=== PATIENT | female | born 1955 | race Caucasian/White ===

== ENCOUNTER 2016-11-12 11:03 | Day surgery (SDC) | payer BC ==
[2016-11-11 08:57] VITALS: BMI 27.0
[~2016-11-12 11:03] MED LIST: LACTATED RINGERS 1,000 ML IV SCH
[2016-11-12 12:20] VITALS: RESP 16; TEMP 97.7
[2016-11-12] MEDS ORDERED: LIDOCAINE 1% 20 ML VIAL (10MG/ML) FOR IV START SQ ONE (12:26)
[2016-11-12] MEDS ORDERED: PROPOFOL 10 MG/ML 20 ML VIAL IV ONE (12:32)
--- NOTE | 2016-11-12 12:59 | P.PCN ---
Date of Procedure: 11/12/16 Procedure(s) Performed: Brief history: Patient is a pleasant 61-year-old white female, scheduled for an elective upper endoscopy as well as colonoscopy as a part of evaluation of severe epigastric pain, abdominal bloating and diarrhea for the last 1 year duration. Symptoms have been progressively getting worse in the last several months. She denies any recent weight loss. She has bowel movements anywhere from 6-8 a day which are loose to watery in consistency. She is presently on the dexilant 60 mg daily as well as Carafate and still has epigastric pain on a daily basis. Procedure performed: Esophagogastroduodenoscopy with biopsy Colonoscopy with biopsy Preoperative diagnosis: Epigastric pain/GERD Chronic diarrhea Anesthesia: MAC Procedure: After informed consent was obtained from the patient was brought into the endoscopy unit and IV conscious sedation was administered by anesthesia under continuous monitoring. Initially upper endoscopy was done. The Olympus GF 160 video endoscope was inserted inserted into the mouth and esophagus intubated without any difficulty and was gradually advanced into the stomach and duodenum and carefully examined. The bulb and second part of the duodenum appeared normal. The scope was then withdrawn into the stomach adequately insufflated with air and upon careful examination the antrum and body, cardia and fundus appeared normal. The scope was then withdrawn into the esophagus. The GE junction was located at 40 cm to the incisors. It appeared regular with no erythema erosions or ulcerations. Rest of the esophagus appeared normal. Patient tolerated the procedure well. At this time the patient continued to remain sedation. Initial digital rectal examination was normal. Olympus CF 160 video colonoscope was then inserted into the rectum and gradually advanced to the cecum without any difficulty. Careful examination was performed as the scope was gradually being withdrawn. The prep was fair. The cecum, ascending colon, transverse colon, descending colon, sigmoid colon and rectum appeared normal. Random biopsies were done from ascending and descending colon to rule out microscopic/collagenous colitis. Retroflexion was performed in the rectum and no lesions were noted. Patient tolerated the procedure well. Impression: 1. Upper endoscopy revealed mild antral gastritis and small hiatal hernia. 2. Colonoscopy was essentially within normal limits with no evidence of colitis or colorectal neoplasia Recommendations: Findings of this examination were discussed with the patient as well as her family. She was advised to follow with the biopsy results. She will continue with the dexilant 60 mg po qd as well as Carafate and the major millimeters the biopsy results. She'll be seen in office in 1 week.
[2016-11-12] MEDS ORDERED: MAG HYDROX/AL HYDROX/SIMETH 30 ML CUP PO ONE (13:11)
[2016-11-12] MEDS ORDERED: FAMOTIDINE 20 MG/2 ML VIAL IVP ONE (13:20)
[2016-11-12 14:03] VITALS: BP 114/47; PULSE 74
== END 2016-11-12 14:12 | disposition home or self-care (01) ==
LOC: ORWHC2ENDO 11:03
PROVIDERS: ATTEND Internal Medicine Gastroenterology
DX: K21.9 Gastro-esophageal reflux disease without esophagitis (principal); K29.50 Unspecified chronic gastritis without bleeding; K44.9 Diaphragmatic hernia without obstruction or gangrene; R19.7 Diarrhea, unspecified; I10 Essential (primary) hypertension; E78.5 Hyperlipidemia, unspecified; J44.9 Chronic obstructive pulmonary disease, unspecified; J45.909 Unspecified asthma, uncomplicated; E07.9 Disorder of thyroid, unspecified; F39 Unspecified mood [affective] disorder; Z88.2 Allergy status to sulfonamides; Z79.51 Long term (current) use of inhaled steroids; Z79.899 Other long term (current) drug therapy; Z87.891 Personal history of nicotine dependence
CPT/HCPCS: 88305; 88342; 45380; 43239; J2704; 99153

== ENCOUNTER 2016-11-29 20:39 | Observation (INO) | payer BC ==
[2016-11-29] MEDS ORDERED: SODIUM CHLORIDE 0.9% 1,000 ML IV STA ×2 (21:14)
[2016-11-29] MEDS ORDERED: METOCLOPRAMIDE 5 MG/ML 2 ML VIAL IVP STA (21:14)
--- NOTE | 2016-11-29 21:20 | ED ---
General Adult HPI - General Source: patient, family, RN notes reviewed Mode of arrival: ambulatory Limitations: no limitations <Napoleon Zhu - Last Filed: 11/30/16 01:00> <Fatimah Valadez - Last Filed: 11/30/16 03:44> - General Chief complaint: Nausea/Vomiting/Diarrhea Stated complaint: NVD x2 days Time Seen by Provider: 11/29/16 20:58 - History of Present Illness Initial comments: Chief complaint and history of present illness 61-year-old female here with her . The patient reports that she's not been feeling well for several days. Nausea vomiting and diarrhea. Feels dehydrated. Reports she had a fever at home currently no fever. (Napoleon Zhu) - Related Data Home Medications Medication Instructions Recorded Confirmed Albuterol Inhaler [Ventolin Hfa 1 - 2 puff INHALATION RT-Q6H PRN 11/11/16 Inhaler] Bimatoprost [Lumigan .01% Ophth 1 drop BOTH EYES HS 11/11/16 11/29/16 Soln] Dexlansoprazole [Dexilant] 60 mg PO HS 11/11/16 11/29/16 Levothyroxine Sodium [Synthroid] 50 mcg PO DAILY 11/11/16 11/29/16 Mometasone/Formoterol [Dulera 100 1 puff INHALATION RT-DAILY 11/11/16 11/29/16 Mcg/5 Mcg Inhaler] Rosuvastatin Calcium [Crestor] 10 mg PO HS 11/11/16 11/29/16 Vit C/E/Zn/Coppr/Lutein/Zeaxan 1 cap PO BID 11/11/16 11/29/16 [Preservision Areds 2 Softgel] Cholecalciferol [Vitamin D3] 1,000 unit PO DAILY 11/29/16 11/29/16 Dicyclomine [Bentyl] 10 mg PO QID 11/29/16 11/29/16 Fish Oil/Dha/Epa [Fish Oil 1,200 1 cap PO DAILY 11/29/16 11/29/16 mg Fish Oil] Sucralfate [Carafate] 1 gm PO QID 11/29/16 11/29/16 Allergies Allergy/AdvReac Type Severity Reaction Status Date / Time Sulfa (Sulfonamide Allergy Anaphylaxis Verified 11/29/16 21:24 Antibiotics) Review of Systems ROS Other: All systems not noted in ROS Statement are negative. <Napoleon Zhu - Last Filed: 11/30/16 01:00> ROS Other: All systems not noted in ROS Statement are negative. <Fatimah Valadez - Last Filed: 11/30/16 03:44> ROS Statement: Those systems with pertinent positive or pertinent negative responses have been documented in the HPI. Review of systems. No headache or stiff neck. No visual acuity changes. No chest pain or shortness of breath. Patient's had nausea vomiting and diarrhea with muscle aches and pains through her shoulders sides and legs. All systems are reviewed. Past medical problems significant for breast cancer 15 years ago, asthma, TIA, GERD, GI bleed, hyperlipidemia, hypertension, hypothyroidism. The patient's surgeries include , cholecystectomy, heart catheterization without stent. Partial hysterectomy, cholecystectomy with a stent which still is there over 12 years. The patient's family history significant for mother had kidney breast cancer grandmother with breast cancer sister had uterine cancer. Patient quit smoking 12 years ago denies alcohol use. (Napoleon Zhu) Past Medical History Past Medical History: Asthma, Cancer, CVA/TIA, GERD/Reflux, GI Bleed, Hyperlipidemia, Hypertension, Thyroid Disorder Additional Past Medical History / Comment(s): hx breast cancer,tia currently experiencing abdominal pain, nausea, states has hole in heart and is wearing a heart monitor for 1 month, states takes metformin for thyroid and weight management. History of Any Multi-Drug Resistant Organisms: None Reported Past Surgical History: Section, Cholecystectomy, Heart Catheterization , Hysterectomy Additional Past Surgical History / Comment(s): Choly with stent, Past Anesthesia/Blood Transfusion Reactions: No Reported Reaction Past Psychological History: No Psychological Hx Reported Smoking Status: Former smoker Past Alcohol Use History: None Reported Additional Past Alcohol Use History / Comment(s): started smoking age 16 smoked 1-2 ppd quit 2004 Past Drug Use History: None Reported - Past Family History Mother Family Medical History: Cancer, Renal Disease Additional Family Medical History / Comment(s): breast cancer Sister(s) Family Medical History: Deep Vein Thrombosis (DVT) Brother(s) Additional Family Medical History / Comment(s): "clotting disorder" <Napoleon Zhu - Last Filed: 11/30/16 01:00> General Exam Limitations: no limitations <Napoleon Zhu - Last Filed: 11/30/16 01:00> <Fatimah Valadez - Last Filed: 11/30/16 03:44> - General Exam Comments Initial Comments: General: The patient is awake and alert, complaining of feeling dehydrated muscle aches and pains nausea vomiting diarrhea for 2 days. Vital signs show temperature 98.9 pulse 79 respiratory rate 16 pulse ox 95% room air blood pressure 137/61. Elevated systolic noted. The patient is in some distress. She'll be following up with her family physician. Eye: Pupils are equal, round and reactive to light, extra-ocular movements are intact ; there is normal conjunctiva bilaterally. No signs of icterus. Ears, nose, mouth and throat: There are moist mucous membranes and no oral lesions. Neck: The neck is supple, there is no tenderness . Cardiovascular: There is a regular rate and rhythm. No murmur, rub or gallop is appreciated. Respiratory: Lungs are clear to auscultation, respirations are non-labored, breath sounds are equal. No wheezes, stridor, rales, or rhonchi. Gastrointestinal: Soft, non-distended, non-tender abdomen without masses or organomegaly noted. There is no rebound or guarding present. No CVA tenderness. Bowel sounds are unremarkable. Back: There is no tenderness to palpation in the midline. There is no obvious deformity. No rashes noted. Musculoskeletal: Generalized musculoskeletal pain. Flu-type symptoms.. Neurological: No neuro deficits. Slightly dizzy when she tries to get up and walk after having had nausea vomiting diarrhea for 2 days. Skin: Skin is warm and dry and no rashes or lesions are noted. (Napoleon Zhu) Course <Napoleon Zhu - Last Filed: 11/30/16 01:00> <Fatimah Valadez - Last Filed: 11/30/16 03:44> Vital Signs 11/29/16 11/29/16 11/30/16 20:45 23:30 03:30 Temperature 98.9 F 97.6 F Pulse Rate 79 69 54 L Respiratory 16 18 16 Rate Blood Pressure 137/61 120/59 118/57 O2 Sat by Pulse 95 97 96 Oximetry - Reevaluation(s) Reevaluation #1: 11/30/16 03:[address] was was reviewed findings were discussed with the patient, there is a questionable ALLERGIC stenosis, gastritis, colitis, pelvic lesion, biliary ductal dilatation and ovarian lesion. She still complaining about a lot of pain considering that she will be admitted under Dr. Hernandez and will consult Dr. Shreya Cash have seen her in the past and she would need MRCP for further evaluation and she be put on some pain meds along with some IV PPIs ( Fatimah Valadez) Medical Decision Making - Lab Data Result diagrams: 11/29/16 21:22 11/29/16 21:22 <Napoleon Zhu - Last Filed: 11/30/16 01:00> - Lab Data Result diagrams: 11/29/16 21:22 11/29/16 21:22 <Fatimah Valadez - Last Filed: 11/30/16 03:44> - Medical Decision Making Medical decision making; patient's white count 6.1 hemoglobin 15 hematocrit of 44. Potassium 3.4 with a BUN 14 creatinine 0.6 and GFR greater than 60. Glucose 101, amylase lipase within normal limits. Flu a and B reported to be negative. Urine shows 8 WBCs 3 RBCs but a fair number of squamous as well. X-rays of the abdomen done and reviewed by radiologist and their impression is possible mild ileus without frankly dilated bowel loops nor free air seen. This could be correlated clinically to guide further follow-up imaging as clinically indicated. As read by Dr. damon Patient is reportedly feeling better after rehydration. Patient was to be scheduled for a CAT scan of the abdomen, she recently had endoscopy and colonoscopy. Her reversal print inspector wanted her to have CAT scan of the abdomen. This be done this evening. Final disposition will be determined by Dr. Valadez (Napoleon Zhu) - Lab Data Lab Results 11/29/16 11/29/16 11/29/16 Range/Units 21:10 21:22 21:22 WBC 6.1 (3.8-10.6) k/uL RBC 5.23 (3.80-5.40) m/uL Hgb 15.4 (11.4-16.0) gm/dL Hct 44.7 (34.0-46.0) % MCV 85.4 (80.0-100.0) fL MCH 29.4 (25.0-35.0) pg MCHC 34.4 (31.0-37.0) g/dL RDW 13.2 (11.5-15.5) % Plt Count 185 (150-450) k/uL Neutrophils % 59 % Lymphocytes % 26 % Monocytes % 10 % Eosinophils % 0 % Basophils % 1 % Neutrophils # 3.6 (1.3-7.7) k/uL Lymphocytes # 1.6 (1.0-4.8) k/uL Monocytes # 0.6 (0-1.0) k/uL Eosinophils # 0.0 (0-0.7) k/uL Basophils # 0.1 (0-0.2) k/uL Sodium 139 (137-145) mmol/L Potassium 3.4 L (3.5-5.1) mmol/L Chloride 101 (98-107) mmol/L Carbon Dioxide 23 (22-30) mmol/L Anion Gap 15 mmol/L BUN 14 (7-17) mg/dL Creatinine 0.68 (0.52-1.04) mg/dL Est GFR (MDRD) Af Amer >60 (>60 ml/min/1.73 sqM) Est GFR (MDRD) Non-Af >60 (>60 ml/min/1.73 sqM) Glucose 101 H (74-99) mg/dL Calcium 9.7 (8.4-10.2) mg/dL Total Bilirubin 0.4 (0.2-1.3) mg/dL AST 29 (14-36) U/L ALT 27 (9-52) U/L Alkaline Phosphatase 84 (38-126) U/L Total Protein 7.5 (6.3-8.2) g/dL Albumin 4.4 (3.5-5.0) g/dL Amylase 81 (30-110) U/L Lipase 92 (23-300) U/L Urine Color Urine Appearance (Clear) Urine pH (5.0-8.0) Ur Specific Miller (1.001-1.035) Urine Protein (Negative) Urine Glucose (UA) (Negative) Urine Ketones (Negative) Urine Blood (Negative) Urine Nitrate (Negative) Urine Bilirubin (Negative) Urine Urobilinogen (<2.0) mg/dL Ur Leukocyte Esterase (Negative) Urine RBC (0-5) /hpf Urine WBC (0-5) /hpf Ur Squamous Epith Cells (0-4) /hpf Hyaline Casts (0-2) /lpf Urine Mucus (None) /hpf Influenza Type A RNA Not Detected (Not Detectd) Influenza Type B (PCR) Not Detected (Not Detectd) 11/29/16 Range/Units 23:06 WBC (3.8-10.6) k/uL RBC (3.80-5.40) m/uL Hgb (11.4-16.0) gm/dL Hct (34.0-46.0) % MCV (80.0-100.0) fL MCH (25.0-35.0) pg MCHC (31.0-37.0) g/dL RDW (11.5-15.5) % Plt Count (150-450) k/uL Neutrophils % % Lymphocytes % % Monocytes % % Eosinophils % % Basophils % % Neutrophils # (1.3-7.7) k/uL Lymphocytes # (1.0-4.8) k/uL Monocytes # (0-1.0) k/uL Eosinophils # (0-0.7) k/uL Basophils # (0-0.2) k/uL Sodium (137-145) mmol/L Potassium (3.5-5.1) mmol/L Chloride (98-107) mmol/L Carbon Dioxide (22-30) mmol/L Anion Gap mmol/L BUN (7-17) mg/dL Creatinine (0.52-1.04) mg/dL Est GFR (MDRD) Af Amer (>60 ml/min/1.73 sqM) Est GFR (MDRD) Non-Af (>60 ml/min/1.73 sqM) Glucose (74-99) mg/dL Calcium (8.4-10.2) mg/dL Total Bilirubin (0.2-1.3) mg/dL AST (14-36) U/L ALT (9-52) U/L Alkaline Phosphatase (38-126) U/L Total Protein (6.3-8.2) g/dL Albumin (3.5-5.0) g/dL Amylase (30-110) U/L Lipase (23-300) U/L Urine Color Yellow Urine Appearance Clear (Clear) Urine pH 6.0 (5.0-8.0) Ur Specific Miller 1.018 (1.001-1.035) Urine Protein Trace H (Negative) Urine Glucose (UA) Negative (Negative) Urine Ketones Trace H (Negative) Urine Blood Negative (Negative) Urine Nitrate Negative (Negative) Urine Bilirubin Negative (Negative) Urine Urobilinogen <2.0 (<2.0) mg/dL Ur Leukocyte Esterase Moderate H (Negative) Urine RBC 3 (0-5) /hpf Urine WBC 8 H (0-5) /hpf Ur Squamous Epith Cells 1 (0-4) /hpf Hyaline Casts 25 H (0-2) /lpf Urine Mucus Rare H (None) /hpf Influenza Type A RNA (Not Detectd) Influenza Type B (PCR) (Not Detectd) Disposition <Napoleon Zhu - Last Filed: 11/30/16 01:00> <Fatimah Valadez - Last Filed: 11/30/16 03:44> Clinical Impression: Gastritis, Colitis, Hepatic lesion, Common bile duct dilatation, Lesion of ovary Disposition: ADMITTED IP TO THIS HOSP
[2016-11-29 21:30] LABS: Basophils # (A) 0.1 k/uL (0-0.2); Basophils % (A) 1 %; CH 29.3; CHCM 34.4; Eosinophils % (A) 0 %; HCT 44.7 % (34.0-46.0); HDW 2.55; HGB 15.4 gm/dL (11.4-16.0); Luc # (Auto) 0.26; Luc % (Auto) 4; Lymphocytes # (A) 1.6 k/uL (1.0-4.8); Lymphocytes % (A) 26 %; MCH 29.4 pg (25.0-35.0); MCHC 34.4 g/dL (31.0-37.0); MCV 85.4 fL (80.0-100.0); Mean Platelet Volume 8.5; Monocytes # (A) 0.6 k/uL (0-1.0); Monocytes % (A) 10 %; Neutrophils # (A) 3.6 k/uL (1.3-7.7); Neutrophils % (A) 59 %; RBC 5.23 m/uL (3.80-5.40); RDW 13.2 % (11.5-15.5); WBC 6.1 k/uL (3.8-10.6); WBC (Perox) 5.86
[2016-11-29] MEDS ORDERED: ACETAMINOPHEN IV (For NPO) 1,000 MG in EMPTY BAG 1 BAG IVPB STA (21:41)
[2016-11-29 21:43] LABS: ALT 27 U/L (9-52); AST 29 U/L (14-36); Alkaline Phosphatase 84 U/L (38-126); Amylase 81 U/L (30-110); Anion Gap 15 mmol/L; Blood Urea Nitrogen 14 mg/dL (7-17); Calcium 9.7 mg/dL (8.4-10.2); Carbon Dioxide 23 mmol/L (22-30); Chloride 101 mmol/L (98-107); Glucose 101 mg/dL (74-99); Non-African American GFR(MDRD) >60 (>60 ml/min/1.73 sqM); Potassium 3.4 mmol/L (3.5-5.1); Sodium 139 mmol/L (137-145); Total Bilirubin 0.4 mg/dL (0.2-1.3); Total Protein 7.5 g/dL (6.3-8.2)
[2016-11-29] MEDS ORDERED: HYDROmorphone 1 MG/ML 1 ML SYRINGE IVP STA (23:14)
[2016-11-29] MEDS ORDERED: MAG HYDROX/AL HYDROX/SIMETH 30 ML, HYOSCYAMINE ELIXIR 10 ML, CIMETIDINE HCL 300 MG PO STA ×3 (23:24)
[2016-11-29 23:43] LABS: Appearance,Urine Clear (Clear); Bilirubin,Urine Negative (Negative); Glucose,Urine (UA) Negative (Negative); Ketones,Urine Trace (Negative); Leukocyte Esterase,Urine Moderate (Negative); Mucus,Urine Rare /hpf; Nitrite,Urine Negative (Negative); Particle Count 4592; Protein,Urine Trace (Negative); RBC,Urine 3 /hpf (0-5); Specific Gravity,Urine 1.018 (1.001-1.035); Squamous Epithelial Cell,Urine 1 /hpf (0-4); UA Billing (MACRO vs. MICRO) MICRO; Urobilinogen,Urine <2.0 mg/dL (<2.0); WBC,Urine 8 /hpf (0-5)
--- NOTE | 2016-11-29 23:58 | XR ---
EXAM: XR Abdomen Complete, 2 or More Views. CLINICAL HISTORY: Reason: Nausea vomiting diarrhea, abdominal pain TECHNIQUE: Frontal view of the abdomen/pelvis with upright view of the abdomen. COMPARISON: No relevant prior studies available. FINDINGS: Free air: None. Gastrointestinal tract: Scattered air-fluid levels seen within nondilated colon and borderline prominent small bowel loop in the left mid abdomen as well as within the stomach, suggesting the possibility of a mild generalized ileus. Visualized organs and vessels: Right upper quadrant clips consistent with cholecystectomy. Small bilateral pelvic calcifications are indeterminate, statistically phleboliths. Bones: Mild rightward curvature of the lumbar spine with mild degenerative changes present. No acute fracture. IMPRESSION: Possible mild ileus without frankly dilated bowel loops nor free air seen. This could be correlated clinically to guide further follow-up imaging as clinically indicated.
[2016-11-30] MEDS ORDERED: RX INFO: IV CONTRAST WAS GIVEN 1 EACH MISC MISCELLANE PRN (00:26)
[2016-11-30] MEDS ORDERED: IOHEXOL 350 MG/ML 25 ML BOTTLE (ORAL USE) PO PRN (00:26)
--- NOTE | 2016-11-30 02:44 | CT ---
EXAM: CT Abdomen and Pelvis With Intravenous Contrast. CLINICAL HISTORY: Reason: Abdominal pain TECHNIQUE: Axial computed tomography images of the abdomen and pelvis with intravenous contrast. CTDI is 14.40 mGy and DLP is 562.00 mGy-cm COMPARISON: Earlier plain films of the same evening. FINDINGS: Lower thorax: There is contrast present, where included, within the mildly dilated distal esophagus and outlining a small hiatal hernia, possibly due to dysmotility or reflux. ABDOMEN: Liver: Ovoid 2.8 x 2.2 cm low-density lesion in the posterior segment right hepatic lobe is of higher density than simple cyst and indeterminate. Gallbladder and bile ducts: Previous cholecystectomy. Mild biliary ductal dilatation with common duct measuring 12-13 mm, and tapering distally without evidence of a calcified obstructing stone within. Pancreas: Unremarkable. No ductal dilation. No mass. Spleen: Unremarkable. No splenomegaly. Adrenals: Unremarkable. No mass. Kidneys and ureters: Unremarkable. No hydronephrosis. No solid mass. PELVIS: Bladder: Unremarkable. No mass. Reproductive: 16 mm left ovarian cyst were low-density cystic lesion is present. Previous hysterectomy. Appendix: No findings to suggest acute appendicitis. ABDOMEN + PELVIS: Stomach and bowel: Contrast filled and distended stomach, without anatomic outlet obstruction although with perhaps mild pyloric wall thickening. Small amount of contrast is seen within a duodenal diverticulum adjacent to the level of the ampulla. Contrast is present within nondilated small bowel loops, not yet reaching the cecum. Allowing for opacification of its lumen and relative decompression, there does appear to be mild circumferential wall thickening of the descending and sigmoid colon to rectum suggesting a mild nonspecific colitis. Peritoneum: Unremarkable. No significant fluid collection. No free air. Lymph nodes: Unremarkable. No enlarged lymph nodes. Vasculature: Multilevel atherosclerotic changes. No aortic aneurysm. Bones: Multilevel degenerative changes. Mild anterior loss of height at T11 and T12, which appear chronic. IMPRESSION: 1. Distended stomach with mild pyloric channel thickening that may be transient, on the basis of gastritis, or much less likely, an underlying neoplastic etiology is not excluded. Formal GI evaluation could be considered. 2. Mild left-sided and distal colonic wall thickening suggesting mild nonspecific colitis. General differential includes infectious, inflammatory and ischemic etiologies. 3. Indeterminate 2.8 cm right hepatic lobe lesion. If no priors, this could be further evaluated by MRI, on a follow-up basis. 4. Mild biliary ductal dilatation which can be seen in the setting of previous cholecystectomy. This too could be reassessed by MRCP at time of follow-up MRI if no priors. 5. 16 mm left ovarian low-density lesion. If not previously known, can be correlated with ultrasound electively for further assessment and baseline purposes.
[2016-11-30] MEDS ORDERED: SODIUM CHLORIDE 0.9% 1,000 ML IV ONE (03:44)
[2016-11-30] MEDS ORDERED: PANTOPRAZOLE 40 MG/10 ML VIAL IVP STA (03:52)
[2016-11-30] MEDS ORDERED: ALBUTEROL NEBULIZED 2.5 MG/3 ML INHALATION PRN (03:53)
[2016-11-30] MEDS ORDERED: LOPERAMIDE 2 MG CAP PO STA (04:07)
[2016-11-30] MEDS: HYDROmorphone 1 MG/ML 1 ML SYRINGE IVP PRN ×4 (04:10→22:30)
[2016-11-30] MEDS: VIT A,C & E-LUTEIN-MINERALS 1 EACH TAB PO SCH (08:06)
[2016-11-30] MEDS: SUCRALFATE 1 GM TAB PO SCH ×2 (08:06→12:17)
[2016-11-30] MEDS: DICYCLOMINE 10 MG CAP PO SCH ×4 (08:06→21:29)
[2016-11-30] MEDS: LEVOTHYROXINE 50 MCG TAB PO SCH (08:06)
[2016-11-30] MEDS: CHOLECALCIFEROL 1,000 UNIT TAB PO SCH (08:06)
[2016-11-30] MEDS: SYMBICORT 160-4.5 MCG INHALER INHALATION SCH ×2 (08:30→19:37)
[2016-11-30] MEDS ORDERED: LOPERAMIDE 2 MG CAP PO PRN (08:46)
--- NOTE | 2016-11-30 08:54 | P.CONS ---
History of Present Illness - Reason for Consult Consult date: 11/30/16 Epigastric pain bloatedness diarrhea Requesting physician: Parviz Hernandez - History of Present Illness 61-year-old female patient Dr. Madera admitted with generalized weakness malaise with abdominal bloatedness epigastric discomfort, intermittent fevers muscle aches and nonbloody diarrhea. Diarrhea up to 10 times a day self treating with [id number] Pepto-Bismol without much improvement. These symptoms have been chronic since July 2016. She underwent EGD colonoscopy evaluation by Dr. Peres on 11/12/2016 with findings of mild antral gastritis and small hiatal hernia. Colonoscopy within normal limits with no evidence of colitis or colorectal neoplasia. Biopsies negative for H. pylori. White count 6.1. Hemoglobin 15.4. Potassium 3.4. BUN 14. Creatinine 0.6. Liver function tests within normal limits. Lipase 92. CT abdomen and pelvis with IV contrast only reported a indeterminant 2.8 x 2.2 cm ovoid low-density lesion in the posterior segment of the right hepatic lobe of higher density than a simple cyst. Small hiatal hernia with mildly dilated distal esophagus pyloric thickening, distended stomach without obstruction. Duodenal diverticulum. Presently resting comfortably. She has been afebrile. She received 1 time dose of Imodium this morning. Still reports frequent stooling every 20 minutes. Influenza screen not detected. Clostridium difficile negative. Review of Systems Constitutional: Denies fever, chills, sweats, weight gain, or loss. HEENT: Negative for migraines, blurred vision or loss, earaches, drainage, tinnitus, oral mucosal lesions, dysphagia, or odynophagia. CARDIAC: Hypertension. Hyperlipidemia. Negative for chest pain, arrhythmias, or palpitation. RESPIRATORY: Negative for shortness of breath, hemoptysis, cough, or sputum production. GI: See HPI for pertinent findings. : Negative for hematuria, urgency, frequency, polyuria, or dysuria. GYNc: Breast cancer. Asthma. Denies possibility of . Negative vaginal discharge. MUSCULOSKELETAL: Negative for muscle aches, swelling, arthritis, and arthralgias. NEUROLOGIC: History of CVA-TIA.. ENDOCRINE: Hypothyroidism.. SKIN: Negative for rash or itching. PSYCHIATRIC: Negative history for depression and anxiety All systems: negative (See HPI) Past Medical History Past Medical History: Asthma, Cancer, CVA/TIA, GERD/Reflux, GI Bleed, Hyperlipidemia, Hypertension, Thyroid Disorder Additional Past Medical History / Comment(s): hx breast cancer,tia currently experiencing abdominal pain, nausea, states takes metformin for thyroid and weight management. History of Any Multi-Drug Resistant Organisms: None Reported Past Surgical History: Section, Cholecystectomy, Heart Catheterization , Hysterectomy Additional Past Surgical History / Comment(s): Choly with stent, Past Anesthesia/Blood Transfusion Reactions: No Reported Reaction Past Psychological History: No Psychological Hx Reported Smoking Status: Former smoker Past Alcohol Use History: None Reported Additional Past Alcohol Use History / Comment(s): started smoking age 16 smoked 1-2 ppd quit 2004 Past Drug Use History: None Reported - Past Family History Mother Family Medical History: Cancer, Renal Disease Additional Family Medical History / Comment(s): breast cancer Sister(s) Family Medical History: Cancer, Deep Vein Thrombosis (DVT), Thyroid Disorder Brother(s) Additional Family Medical History / Comment(s): "clotting disorder" Medications and Allergies Home Medications Medication Instructions Recorded Confirmed Type Albuterol Inhaler [Ventolin Hfa 1 - 2 puff INHALATION RT-Q6H PRN 11/11/16 History Inhaler] Bimatoprost [Lumigan .01% Ophth 1 drop BOTH EYES HS 11/11/16 11/29/16 History Soln] Dexlansoprazole [Dexilant] 60 mg PO HS 11/11/16 11/29/16 History Levothyroxine Sodium [Synthroid] 50 mcg PO DAILY 11/11/16 11/29/16 History Mometasone/Formoterol [Dulera 100 1 puff INHALATION RT-DAILY 11/11/16 11/29/16 History Mcg/5 Mcg Inhaler] Rosuvastatin Calcium [Crestor] 10 mg PO HS 11/11/16 11/29/16 History Vit C/E/Zn/Coppr/Lutein/Zeaxan 1 cap PO BID 11/11/16 11/29/16 History [Preservision Areds 2 Softgel] Cholecalciferol [Vitamin D3] 1,000 unit PO DAILY 11/29/16 11/29/16 History Dicyclomine [Bentyl] 10 mg PO QID 11/29/16 11/29/16 History Fish Oil/Dha/Epa [Fish Oil 1,200 1 cap PO DAILY 11/29/16 11/29/16 History mg Fish Oil] Sucralfate [Carafate] 1 gm PO QID 11/29/16 11/29/16 History Allergies Allergy/AdvReac Type Severity Reaction Status Date / Time Sulfa (Sulfonamide Allergy Anaphylaxis Verified 11/29/16 21:24 Antibiotics) Physical Exam Vitals: Vital Signs Temp Pulse Pulse Resp BP BP Pulse Ox 11/30/16 07:00 98.0 F 64 20 117/73 95 11/30/16 04:48 97.8 F 54 L 18 128/68 94 L Intake and Output 11/29/16 11/30/16 11/30/16 22:59 06:59 14:59 Intake Total 0 Balance 0 Intake: Oral 0 Other: Voiding Method Toilet # Voids 1 Weight 64.5 kg General appearance: The patient is alert, oriented, in no acute distress. HET: Head is normocephalic and atraumatic. Pupils are equal and reactive. Oropharynx is clear without lesions. Neck: Supple without lymphadenopathy. Trachea midline. Heart: S1 S2. Regular rate and rhythm. Lungs: No crackles or wheezes are heard. Abdomen: Soft, midepigastric tenderness, nondistended with bowel sounds. No peritoneal signs. No palpable organomegaly or masses. Extremities: Normal skin color and turgor. No cyanosis, rash, ulceration, clubbing, or edema. Radial and pedal pulses are 2/4 bilaterally. Neurological: No focal deficits. Strength and sensation are grossly intact. Results CBC & Chem 7: 11/29/16 21:22 11/29/16 21:22 CT scan - abdomen: report reviewed (Reviewed by Dr. Peres) Assessment and Plan (1) Epigastric abdominal pain Narrative/Plan: Gastritis. EGD colonoscopy 11/12/2016 with findings of small hiatal hernia, gastritis and normal-appearing colon; gastric biopsies negative for H. pylori. Status: Acute (2) Diarrhea Status: Chronic (3) Hepatic lesion Narrative/Plan: Right posterior lobe; Possible cyst, indeterminant Status: Acute Plan: 1. Continue with Carafate before meals at bedtime and Protonix twice daily. 2. Imodium 2 mg 4 times a day as needed for diarrhea. Monitor stools. Will obtain stool culture and fecal leukocytes. 3. AFP and CEA level. Outpatient MRI discussed for workup of liver lesion. Soft diet. We'll follow with you. Thank you for this kind referral and the opportunity to participate in the care of your patient. This consultation was discussed with Dr. Peres. The impression and plan of care have been directed as dictated.
[2016-11-30] MEDS ORDERED: PANTOPRAZOLE 40 MG/10 ML VIAL IVP SCH (09:00)
[2016-11-30] MEDS ORDERED: NON-FORMULARY DRUG (Fish Oil/Dha/Epa [Fish Oil 1,200 Mg Fish Oil] 1 CAP) PO SCH (09:00)
--- NOTE | 2016-11-30 16:51 | HP ---
DATE OF ADMISSION: 11/30/2016 PRESENTING COMPLAINT: Nausea, vomiting, diarrhea. HISTORY OF PRESENTING COMPLAINT: This is a very pleasant 61-year-old patient of Dr. Madera whose chronic stable medical conditions include asthma, COPD, increased GERD, hypertension, hyperlipidemia. Patient for 2 to 3 weeks has been having symptoms when she would be flushing, start sweating, getting bloated; stomach would hurt after eating certain kinds of food; a lot of reflux. Did see Dr. Peres. Patient underwent EGD on 11/12/16. Patient was found to have a small hiatal hernia, some mild antral gastritis. She had an essentially negative colonoscopy. Because of these symptoms, the patient also saw Dr. Daryl Redmond and she was told that all the cardiac workup was negative. In the meantime, patient has now developed nausea, vomiting, diarrhea, chills, achiness all over the body. She described flulike symptoms and come in for that, including loose stools. Patient's is at the bedside. REVIEW OF SYSTEMS: CONSTITUTIONAL: Weak, tired. HEENT: None. RESPIRATORY: Occasional wheezing. CARDIOVASCULAR: None. GASTROINTESTINAL: Heartburn. GENITOURINARY: None. MUSCULOSKELETAL: Aches and pains in joints. DERMATOLOGICAL: None. HEMATOLOGIC: None. LYMPHATICS: None. PSYCHIATRY: None. NEUROLOGICAL: None. PAST MEDICAL HISTORY: 1. Asthma. 2. GERD. 3. Hypertension. 4. Hyperlipidemia. 5. Hypothyroid. 6. Breast cancer. 7. TIA. PAST SURGICAL HISTORY: 1. . 2. Cholecystectomy. 3. Cardiac catheterization. 4. Hysterectomy. SOCIAL HISTORY: Patient smoked for about 35 years, 1 to 2 packs a day; stopped in 2004. . FAMILY HISTORY: Renal disease and breast cancer. HOME MEDICATIONS: 1. Carafate 1 gram p.o. q.i.d. 2. Fish oil 1200 mg capsule b.i.d. 3. Bentyl 10 mg p.o. q.i.d. 4. Vitamin D3 10,000 units p.o. daily. 5. Ventolin HFA 1 to 2 puffs q.6 p.r.n. 6. Crestor 10 mg p.o. at bedtime. 7. Dulera 100/5 one puff daily. 8. Synthroid 50 mcg p.o. daily. 9. Dexilant 60 mg at bedtime. 10. Lumigan 0.01% one drop to both eyes at bedtime. 11. PreserVision Areds 2 Softgel 1 capsule p.o. b.i.d. ALLERGIES: SULFA. On examination, temperature 97.6, pulse 69, respiration 18, blood pressure 120/59, pulse ox 97% on room air. GENERAL APPEARANCE: Average build. Lying in bed. Tired-appearing. EYES: Pupils equal. Conjunctivae normal. HEENT: Oral cavity normal. NECK: JVD not raised. Mass not palpable. RESPIRATORY: Effort normal. LUNGS: Mild wheezing. CARDIOVASCULAR: First and second sounds normal. No edema. ABDOMEN: Minimal epigastric tenderness. Soft. Liver and spleen not palpable. LYMPHATIC: No lymph node palpable in neck or axillae. PSYCHIATRY: Alert and oriented x3. Mood and affect normal. NEUROLOGICAL: Pupils equal. Cranial nerves grossly intact. Power and sensation grossly intact. INVESTIGATIONS: White count 6.1, hemoglobin 15.4. Potassium 3.4. BUN and creatinine are normal. UA positive for leukocyte esterase. Influenza screen both negative. CT scan of the abdomen and pelvis essentially unremarkable. ASSESSMENT: 1. Acute viral syndrome causing myalgia, arthralgia, diarrhea. C difficile is negative. 2. Gastroesophageal reflux disease. 3. Essential hypertension. 4. Hyperlipidemia. 5. Chronic obstructive pulmonary disease in an ex-smoker. PLAN: Patient's home medications are resumed. Given the EGD findings, there is no role for Carafate. In fact, that will ( ) absorption of the medication. Will discontinue the same. Patient's C difficile has come back negative. Patient will be put on clear liquids and advanced as tolerated. Patient is already on Bentyl for spasms. Will also treat the patient with antibiotics for UTI. Care was discussed at length with the patient and her at the bedside. GI was consulted.
[2016-11-30] MEDS: LOPERAMIDE 2 MG CAP PO SCH ×2 (17:31→21:29)
[2016-11-30] MEDS: CIPROFLOXACIN HCL 250 MG TAB PO SCH ×2 (17:31→21:29)
[2016-11-30] MEDS: METOCLOPRAMIDE 5 MG/ML 2 ML VIAL IVP SCH ×2 (17:32→21:29)
[2016-11-30] MEDS: ATORVASTATIN 20 MG TAB PO SCH (21:29)
[2016-11-30] MEDS: LATANOPROST 0.005% OPHTH DROPS 2.5 ML BTL BOTH EYES SCH (21:30)
[2016-12-01 01:12] VITALS: PULSE 54
[2016-12-01] MEDS: HYDROmorphone 1 MG/ML 1 ML SYRINGE IVP PRN ×2 (02:54→08:22)
[2016-12-01] MEDS ORDERED: PANTOPRAZOLE 40 MG TABLET PO SCH (07:30)
[2016-12-01] MEDS: DICYCLOMINE 10 MG CAP PO SCH ×4 (08:12→20:34)
[2016-12-01] MEDS: CHOLECALCIFEROL 1,000 UNIT TAB PO SCH (08:12)
[2016-12-01] MEDS: CIPROFLOXACIN HCL 250 MG TAB PO SCH ×2 (08:12→20:34)
[2016-12-01] MEDS: VIT A,C & E-LUTEIN-MINERALS 1 EACH TAB PO SCH (08:12)
[2016-12-01] MEDS: LEVOTHYROXINE 50 MCG TAB PO SCH (08:13)
[2016-12-01] MEDS: METOCLOPRAMIDE 5 MG/ML 2 ML VIAL IVP SCH ×4 (08:22→20:35)
[2016-12-01] MEDS: LOPERAMIDE 2 MG CAP PO SCH ×4 (08:22→20:36)
[2016-12-01] MEDS: SYMBICORT 160-4.5 MCG INHALER INHALATION SCH ×2 (09:04→19:23)
--- NOTE | 2016-12-01 10:01 | P.PN ---
Subjective Principal diagnosis: Diarrhea abdominal pain 61-year-old female recently evaluated for diarrhea nausea vomiting abdominal pain for months duration. Status post EGD colonoscopy 3 weeks ago. Reports improvement in diarrhea. Frequency is the same but quantity has improved. Denies rectal bleeding. Tolerating diet. CT on admission reported oval-shaped liver lesion possible cyst indeterminant. AFP/CEA within normal limits. Objective - Vital Signs Vital signs: Vital Signs Temp 96.8 F L 12/01/16 07:00 Pulse 54 L 12/01/16 07:00 Resp 18 12/01/16 07:00 BP 128/93 12/01/16 07:00 Pulse Ox 94 L 12/01/16 07:00 Intake & Output 11/30/16 12/01/16 12/01/16 18:59 06:59 18:59 Intake Total 240 1000 Balance 240 1000 Intake: Oral 240 1000 Other: Voiding Method Toilet Toilet # Voids 2 1 # Bowel Movements 2 - Exam General appearance: The patient is alert, oriented, in no acute distress. HET: Head is normocephalic and atraumatic. Pupils are equal and reactive. Oropharynx is clear without lesions. Neck: Supple without lymphadenopathy. Trachea midline. Heart: S1 S2. Regular rate and rhythm. Lungs: No crackles or wheezes are heard. Abdomen: Soft, mild diffuse midabdominal tenderness, nondistended with bowel sounds. No peritoneal signs. No palpable organomegaly or masses. Extremities: Normal skin color and turgor. No cyanosis, rash, ulceration, clubbing, or edema. Radial and pedal pulses are 2/4 bilaterally. Neurological: No focal deficits. Strength and sensation are grossly intact. - Labs CBC & Chem 7: 11/29/16 21:22 11/29/16 21:22 Assessment and Plan (1) Epigastric abdominal pain Narrative/Plan: Gastritis. EGD colonoscopy 11/12/2016 with findings of small hiatal hernia, gastritis and normal-appearing colon; gastric biopsies negative for H. pylori. Status: Acute (2) Diarrhea Status: Chronic (3) Hepatic lesion Narrative/Plan: Right posterior lobe; Possible cyst, indeterminant Status: Acute Plan: 1. Continue with Carafate before meals at bedtime and Protonix twice daily. 2. Imodium 2 mg 4 times daily for diarrhea. Monitor stools. Additional studies pending. Discharge planning. 3. Outpatient liver MRI; option provided. Soft diet. We'll follow with you. Assessment and plan of care discussed with Dr. Peres.
[2016-12-01 15:51] VITALS: BP 108/63; RESP 20; TEMP 98.2
[2016-12-01] MEDS: LATANOPROST 0.005% OPHTH DROPS 2.5 ML BTL BOTH EYES SCH (20:34)
[2016-12-01] MEDS: ATORVASTATIN 20 MG TAB PO SCH (20:34)
--- NOTE | 2016-12-02 09:28 | DS ---
DATE OF ADMISSION: 11/30/2016 DATE OF DISCHARGE: 12/01/2016 FINAL DIAGNOSES: 1. Acute viral syndrome causing myalgia arthralgia, diarrhea. Clostridium difficile was negative. 2. Gastroesophageal reflux disease. 3. Essential hypertension. 4. Hyperlipidemia. 5. Chronic obstructive pulmonary disease in an ex-smoker. 6. Bowel spasm. 7. Acute urinary tract infection. CONSULTATION: Dr. Corwin Peres from GI. HOSPITAL COURSE: This patient had a recent EGD and essentially unremarkable presented with nausea, vomiting, fever, arthralgia, felt to be acute viral syndrome that settled down. Patient is eating much better at the time of discharge. Outpatient. MRI is being arranged by Dr. Corwin Peres. ON EXAM: ABDOMEN: Soft, nontender. DISCHARGE MEDICATIONS: 1. Ventolin HFA 1 to 2 puffs q.6 p.r.n. 2. Lumigan ( ) % one drop to both eyes q.h.s. 3. Dexilant 60 mg p.o. q.h.s. 4. Synthroid 50 mcg p.o. daily. 5. Dulera 100/5 one puff daily. 6. Crestor 10 mg q.h.s. 7. PreserVision Areds 2 softgel 1 capsule p.o. b.i.d. 8. Vitamin D3, 1000 units p.o. daily. 9. Bentyl 10 mg p.o. q.i.d. 10. Fish oil 1200 mg p.o. 1 capsule daily. 11. Cipro 250 mg p.o. b.i.d., 6 capsules. 12. Imodium 2 mg q.i.d. p.r.n. Follow up with Dr. Madera in 3 days. Follow up with Dr. Corwin Peres on 01/31/17. Outpatient MRI is being arranged by Dr. Corwin Peres. DIET: Soft, low fat.
== END 2016-12-01 21:54 | disposition home or self-care (01) ==
LOC: EC 20:39 → 4MS4W 11-30 03:43
PROVIDERS: ADMIT Hospitalist; ATTEND Hospitalist
DX: B34.9 Viral infection, unspecified (principal); K58.0 Irritable bowel syndrome with diarrhea; M79.1 Myalgia; M25.50 Pain in unspecified joint; K21.9 Gastro-esophageal reflux disease without esophagitis; I10 Essential (primary) hypertension; E78.5 Hyperlipidemia, unspecified; J44.9 Chronic obstructive pulmonary disease, unspecified; Z87.891 Personal history of nicotine dependence; N39.0 Urinary tract infection, site not specified; K29.60 Other gastritis without bleeding; K44.9 Diaphragmatic hernia without obstruction or gangrene; J45.909 Unspecified asthma, uncomplicated; E03.9 Hypothyroidism, unspecified; Z86.73 Personal history of transient ischemic attack (TIA), and cerebral infarction without residual deficits; Z79.899 Other long term (current) drug therapy; Z88.2 Allergy status to sulfonamides; K76.9 Liver disease, unspecified; K83.8 Other specified diseases of biliary tract; Z90.49 Acquired absence of other specified parts of digestive tract; N83.9 Noninflammatory disorder of ovary, fallopian tube and broad ligament, unspecified
CPT/HCPCS: 36415; 94640 ×2; 80053; 82378; 82150; 83690; 85025; 81001; 87324; 82105; 87045; 89055; 87046; 87502; 74020; 74177; 99285; 96365; 96375 ×3; 96361 ×3; 96376; G0378 ×2; J2765 ×3; J1170 ×3; Q9967; J0131; C9113

== ENCOUNTER → 2017-02-21 | Outpatient (CLI) | payer BC ==
[2017-02-21 15:53] LABS: Blood Urea Nitrogen 8 mg/dL (7-17); Non-African American GFR(MDRD) >60 (>60 ml/min/1.73 sqM)
== END | disposition home or self-care (01) ==
LOC: LABWHC1 15:15
PROVIDERS: ATTEND Internal Medicine Gastroenterology
DX: Z01.89 Encounter for other specified special examinations (principal)
CPT/HCPCS: 36415; 82565; 84520

== ENCOUNTER → 2017-02-22 | Outpatient (CLI) | payer BC ==
--- NOTE | 2017-02-22 17:14 | MR ---
MR abdomen with contrast and without contrast HISTORY: Liver lesion, abnormal CT scan abdomen Correlation to CT abdomen 30 November 2016 Multiplanar multisequence and postcontrast images through the liver following 15 cc MultiHance IV Hiatal hernia is noted. The hypodense lesion in the right lobe of the liver shows corresponding hyperintensity on T2-weighted sequences and measures approximately 2.9 cm, additional lesion towards the dome best seen on coronal image [address] scan also shows decreased intensity on T2-weighted sequences and measures approxi mately 9 mm. These lesions are hypointense on T1-weighted sequences. Following contrast administration nodular centripetal enhancement is noted. Signal drop on out of pha se imaging within the liver is compatible with underlying fatty infiltration. A probable duodenal diverticulum is noted as on prior CT at the third portion of the duodenum. Patien t is post cholecystectomy. Some prominence of the biliary system is likely due to postcholecystectomy change. Cystic focus associated with the right kidney is again noted measuring approximately 9 mm po sterior mid pole. There is no ascites or retroperitoneal adenopathy. Aorta shows normal caliber and e nhancement. Celiac axis, superior mesenteric artery, renal arteries are patent. Left-sided: Wall thic kening again noted. IMPRESSION: Findings in the liver compatible with hemangiomas. Postop changes. Hiatal hernia. Duodena l diverticulum. Nonspecific colonic wall thickening.
== END | disposition home or self-care (01) ==
LOC: RADMRIMAIN 14:08
PROVIDERS: ATTEND Internal Medicine Gastroenterology
DX: D18.09 Hemangioma of other sites (principal); K44.9 Diaphragmatic hernia without obstruction or gangrene; K57.10 Diverticulosis of small intestine without perforation or abscess without bleeding; K63.89 Other specified diseases of intestine
CPT/HCPCS: 74183; A9577

== ENCOUNTER 2017-10-04 15:45 | Emergency (ER) | payer BC ==
[2017-10-04] MEDS ORDERED: ONDANSETRON 4 MG/2 ML VIAL IVP STA (17:08)
[2017-10-04] MEDS ORDERED: RX INFO: IV CONTRAST WAS GIVEN 1 EACH MISC MISCELLANE PRN ×2 (17:08→17:09)
[2017-10-04] MEDS ORDERED: HYDROmorphone 1 MG/ML 1 ML SYRINGE IVP STA ×2 (17:08→19:25)
[2017-10-04 17:47] LABS: Basophils # (A) 0.1 k/uL (0-0.2); Basophils % (A) 1 %; Eosinophils # (A) 0.2 k/uL (0-0.7); Eosinophils % (A) 3 %; HCT 45.3 % (34.0-46.0); HGB 14.9 gm/dL (11.4-16.0); Lymphocytes # (A) 1.9 k/uL (1.0-4.8); Lymphocytes % (A) 29 %; MCH 28.9 pg (25.0-35.0); MCHC 32.9 g/dL (31.0-37.0); MCV 87.7 fL (80.0-100.0); Mean Platelet Volume 8.5; Monocytes # (A) 0.3 k/uL (0-1.0); Monocytes % (A) 4 %; Neutrophils % (A) 61 %; Platelet Count 255 k/uL (150-450); RBC 5.16 m/uL (3.80-5.40); RDW 12.9 % (11.5-15.5); WBC 6.7 k/uL (3.8-10.6)
[2017-10-04 17:55] LABS: Anion Gap 11 mmol/L; Calcium 10.3 mg/dL (8.4-10.2); Carbon Dioxide 26 mmol/L (22-30); Chloride 105 mmol/L (98-107); Glucose 79 mg/dL (74-99); Sodium 142 mmol/L (137-145); Total Bilirubin 0.6 mg/dL (0.2-1.3)
[2017-10-04 17:58] LABS: ALT 42 U/L (9-52); AST 44 U/L (14-36); Albumin 4.4 g/dL (3.5-5.0); Alkaline Phosphatase 92 U/L (38-126); Blood Urea Nitrogen 9 mg/dL (7-17); Potassium 4.3 mmol/L (3.5-5.1); Total Protein 7.3 g/dL (6.3-8.2)
--- NOTE | 2017-10-04 18:07 | ED ---
General Adult HPI - General Chief complaint: Fall Stated complaint: fall/head injury-4 days ago/sent by Time Seen by Provider: 10/04/17 16:50 Source: patient, RN notes reviewed Mode of arrival: ambulatory Limitations: no limitations - History of Present Illness Initial comments: Patient 62-year-old female who presents emergency room today with a chief complaint of fall occurred 4 days ago. She does not that she was on a ladder. She states she does not remember the fall itself. She states she is unsure how she fell down the ladder slipped. Patient does admit that she doesn't believe she lost consciousness. Has been having pain to her head, neck, hips bilaterally. Lower back. Right wrist. Chest and abdomen. Patient does admit that these pains are worse with movements. She states she saw her family doctor today and was advised complete emergency room for further evaluation. Patient denies any recent fever, chills, shortness of breath, chest pain, abdominal pain, numbness or tingling, dysuria or hematuria, constipation or diarrhea, visual changes, or any other complaints. - Related Data Home Medications Medication Instructions Recorded Confirmed Albuterol Inhaler [Ventolin Hfa 1 - 2 puff INHALATION RT-Q6H PRN 11/11/16 Inhaler] Bimatoprost [Lumigan .01% Ophth 1 drop BOTH EYES HS 11/11/16 10/04/17 Soln] Dexlansoprazole [Dexilant] 60 mg PO HS 11/11/16 10/04/17 Levothyroxine Sodium [Synthroid] 50 mcg PO DAILY 11/11/16 10/04/17 Mometasone/Formoterol [Dulera 100 1 puff INHALATION RT-DAILY 11/11/16 10/04/17 Mcg/5 Mcg Inhaler] Rosuvastatin Calcium [Crestor] 10 mg PO HS 11/11/16 10/04/17 Vit C/E/Zn/Coppr/Lutein/Zeaxan 2 cap PO HS 11/11/16 10/04/17 [Preservision Areds 2 Softgel] Cholecalciferol [Vitamin D3] 1,000 unit PO DAILY 11/29/16 10/04/17 Dicyclomine [Bentyl] 10 mg PO QID 11/29/16 10/04/17 Fish Oil/Dha/Epa [Fish Oil 1,200 1 cap PO DAILY 11/29/16 10/04/17 mg Fish Oil] Montelukast [Singulair] 10 mg PO HS 10/04/17 10/04/17 Previous Rx's Medication Instructions Recorded Loperamide [Imodium] 2 mg PO QID PRN #30 cap 12/01/16 Cyclobenzaprine [Flexeril] 10 mg PO TID #20 tab 10/04/17 Ibuprofen [Motrin] 600 mg PO Q6HR PRN #40 day 10/04/17 Allergies Allergy/AdvReac Type Severity Reaction Status Date / Time Sulfa (Sulfonamide Allergy Anaphylaxis Verified 10/04/17 17:02 Antibiotics) Review of Systems ROS Statement: Those systems with pertinent positive or pertinent negative responses have been documented in the HPI. ROS Other: All systems not noted in ROS Statement are negative. Past Medical History Past Medical History: Asthma, Cancer, CVA/TIA, GERD/Reflux, GI Bleed, Hyperlipidemia, Hypertension, Thyroid Disorder Additional Past Medical History / Comment(s): hx breast cancer,tia currently experiencing abdominal pain, nausea, states takes metformin for thyroid and weight management. History of Any Multi-Drug Resistant Organisms: None Reported Past Surgical History: Section, Cholecystectomy, Heart Catheterization , Hysterectomy Additional Past Surgical History / Comment(s): Choly with stent, Past Anesthesia/Blood Transfusion Reactions: No Reported Reaction Past Psychological History: No Psychological Hx Reported Smoking Status: Former smoker Past Alcohol Use History: None Reported Past Drug Use History: None Reported - Past Family History Mother Family Medical History: Cancer, Renal Disease Additional Family Medical History / Comment(s): breast cancer Sister(s) Family Medical History: Cancer, Deep Vein Thrombosis (DVT), Thyroid Disorder Brother(s) Additional Family Medical History / Comment(s): "clotting disorder" General Exam - General Exam Comments Initial Comments: General: The patient is awake and alert, in no distress, and does not appear acutely ill. Eye: Pupils are equal, round and reactive to light, extra-ocular movements are intact. No nystagmus. There is normal conjunctiva bilaterally. No signs of icterus. Ears, nose, mouth and throat: There are moist mucous membranes and no oral lesions. Neck: The neck is supple, there is no tenderness or JVD. Cardiovascular: There is a regular rate and rhythm. No murmur, rub or gallop is appreciated. Respiratory: Lungs are clear to auscultation, respirations are non-labored, breath sounds are equal. No wheezes, stridor, rales, or rhonchi. Gastrointestinal: Normal appearance of the abdomen. Normal all sounds. Abdomen soft on palpation. Patient does have tenderness to the lower abdomen on exam. There is no bruising or swelling. No CVA tenderness. Musculoskeletal: Normal appearance of the cervical, thoracic, lumbar spine. No step-offs deformities appreciated. Patient does have tenderness cervical spine from C5 to C7. Increased paravertebral tenderness on the right side of cervical spine this area. Patient has normal appearance of thoracic lumbar spine step-offs forms. Tender to palpation from L3 to S1. Patient does have tenderness palpation of the anterior chest wall. Patient has palpation with extension to the right wrist. No bony tenderness on exam to this area. No tenderness to the remaining upper extremities. Patient has mild tenderness to the lateral aspect of the hips bilaterally. Mildly tender over the right anterior knee. Strength 5/5. Sensation intact. Pulses equal bilaterally 2+. Neurological: A&O x 3. CN II-XII intact, There are no obvious motor or sensory deficits. Coordination appears grossly intact. Speech is normal. Skin: Skin is warm and dry and no rashes or lesions are noted. Psychiatric: Cooperative, appropriate mood & affect, normal judgment. Limitations: no limitations Course Vital Signs 10/04/17 10/04/17 10/04/17 15:53 16:49 18:29 Temperature 99.7 F H Pulse Rate 63 58 L 60 Respiratory 18 18 18 Rate Blood Pressure 144/80 158/102 141/56 O2 Sat by Pulse 97 98 96 Oximetry 10/04/17 18:52 Temperature Pulse Rate 64 Respiratory 18 Rate Blood Pressure 141/66 O2 Sat by Pulse 95 Oximetry Medical Decision Making - Medical Decision Making Patient reexamined at this time shows no signs of distress. CT of the head and neck, chest abdomen pelvis are negative for any acute abnormalities. Patient's x-rays have been reviewed and are negative for any fractures or dislocation. Results were discussed with the patient. Patient will be discharged home on anti-inflammatories also advised use Tylenol for pain. Will be given a prescription for muscle relaxant. Advised faulted family doctor over the next 2 days. Advised return here to the emergency room for any symptoms increase or worsen. - Lab Data Result diagrams: 10/04/17 17:38 10/04/17 17:38 Lab Results 10/04/17 10/04/17 Range/Units 17:38 17:38 WBC 6.7 (3.8-10.6) k/uL RBC 5.16 (3.80-5.40) m/uL Hgb 14.9 (11.4-16.0) gm/dL Hct 45.3 (34.0-46.0) % MCV 87.7 (80.0-100.0) fL MCH 28.9 (25.0-35.0) pg MCHC 32.9 (31.0-37.0) g/dL RDW 12.9 (11.5-15.5) % Plt Count 255 (150-450) k/uL Neutrophils % 61 % Lymphocytes % 29 % Monocytes % 4 % Eosinophils % 3 % Basophils % 1 % Neutrophils # 4.0 (1.3-7.7) k/uL Lymphocytes # 1.9 (1.0-4.8) k/uL Monocytes # 0.3 (0-1.0) k/uL Eosinophils # 0.2 (0-0.7) k/uL Basophils # 0.1 (0-0.2) k/uL Sodium 142 (137-145) mmol/L Potassium 4.3 (3.5-5.1) mmol/L Chloride 105 (98-107) mmol/L Carbon Dioxide 26 (22-30) mmol/L Anion Gap 11 mmol/L BUN 9 (7-17) mg/dL Creatinine 0.59 (0.52-1.04) mg/dL Est GFR (MDRD) Af Amer >60 (>60 ml/min/1.73 sqM) Est GFR (MDRD) Non-Af >60 (>60 ml/min/1.73 sqM) Glucose 79 (74-99) mg/dL Calcium 10.3 H (8.4-10.2) mg/dL Total Bilirubin 0.6 (0.2-1.3) mg/dL AST 44 H (14-36) U/L ALT 42 (9-52) U/L Alkaline Phosphatase 92 (38-126) U/L Total Protein 7.3 (6.3-8.2) g/dL Albumin 4.4 (3.5-5.0) g/dL Disposition Clinical Impression: Fall, Head injury, Wrist sprain, Knee contusion Disposition: HOME SELF-CARE Condition: Good Instructions: Muscle Strain (ED) Additional Instructions: Please use medication as discussed. Please follow-up with family doctor in the next 2 days. Please return to emergency room if the symptoms increase or worsen or for any other concerns. Prescriptions: Cyclobenzaprine [Flexeril] 10 mg PO TID #20 tab Ibuprofen [Motrin] 600 mg PO Q6HR PRN #40 day PRN Reason: Pain Referrals: Scott Madera MD [Primary Care Provider] - 1-2 days Time of Disposition: 19:23
--- NOTE | 2017-10-04 18:26 | XR ---
EXAMINATION TYPE: XR wrist complete RT DATE OF EXAM: 10/04/2017 COMPARISON: NONE HISTORY: Pain TECHNIQUE: 4 views FINDINGS: I see no fracture nor dislocation. Carpal bones are intact. There are no erosions. IMPRESSION: Negative right wrist exam.
--- NOTE | 2017-10-04 18:27 | XR ---
EXAMINATION TYPE: XR pelvis AP view DATE OF EXAM: 10/04/2017 COMPARISON: NONE HISTORY: Pain TECHNIQUE: Single view FINDINGS: Pelvic ring is intact. Proximal femurs and hip joints are intact. Sacroiliac joints appear normal. IMPRESSION: Negative pelvis exam.
--- NOTE | 2017-10-04 18:28 | XR ---
EXAMINATION TYPE: XR knee limited RT DATE OF EXAM: 10/04/2017 COMPARISON: NONE HISTORY: Pain after a fall TECHNIQUE: 3 views FINDINGS: I see no fracture nor dislocation. Joint spaces are fairly normal. There is no sign of knee joint effusion. IMPRESSION: Negative right knee exam.
--- NOTE | 2017-10-04 19:06 | CT ---
EXAMINATION TYPE: CT brain marcelo menard DATE OF EXAM: 10/04/2017 COMPARISON: NONE HISTORY: Fall x4 days ago. Neck and head pain. CT DLP: 1581.7 mGycm Automated exposure control for dose reduction was used. TECHNIQUE: CT scan of the head and cervical spine are performed without contrast. FINDINGS: Ventricles and sulci appear normal. There is no mass effect nor midline shift. There is n o sign of intracranial hemorrhage. The calvarium is intact. The cervical vertebra have fairly normal alignment. Posterior element are intact and there is some sp urring of the endplates anteriorly from C4 to T1. The skull base is intact. There is no evidence of a fracture. IMPRESSION: Negative CT scan of the brain. Mild spondylotic changes in the cervical spine. No fracture.
--- NOTE | 2017-10-04 19:09 | CT ---
EXAMINATION TYPE: CT ChestAbdPelvis w con DATE OF EXAM: 10/04/2017 COMPARISON: NONE HISTORY: Fall x4 days ago. Abd and back pain. CT DLP: 448.2 mGycm Automated exposure control for dose reduction was used. CONTRAST: CT scan of the chest, abdomen and pelvis is performed without Oral Contrast and with IV Contrast, pat ient injected with 100ml mL of Omnipaque 300. FINDINGS: The heart and mediastinum appear normal. Lung bases are clear. There is no pleural effusion. There is no evidence of any pulmonary infiltrate. There is no mediastinal adenopathy. Thoracic aorta is intac t. The liver spleen pancreas appear normal. There are clips from cholecystectomy. Bile ducts are not dil ated. There is no adrenal mass. Kidneys show satisfactory contrast opacification. There is no hydronephrosi s. There is mild atheromatous change in the abdominal aorta. There is no retroperitoneal adenopathy. There is no ascites. I see no intestinal wall thickening. Latter distends smoothly. There is no free fluid in the pelvis. There is no evidence of spinal fracture. IMPRESSION: Negative CT scan of the chest abdomen and pelvis. No evidence of traumatic injury.
[2017-10-05 23:09] VITALS: BP 141/66; PULSE 64; RESP 18; TEMP 98.5
== END 2017-10-04 19:43 | disposition home or self-care (01) ==
LOC: EC 15:45
DX: S80.01XA Contusion of right knee, initial encounter (principal); S09.90XA Unspecified injury of head, initial encounter; S63.501A Unspecified sprain of right wrist, initial encounter; M54.5 Low back pain; M54.2 Cervicalgia; M25.552 Pain in left hip; M25.551 Pain in right hip; J45.909 Unspecified asthma, uncomplicated; K21.9 Gastro-esophageal reflux disease without esophagitis; E78.5 Hyperlipidemia, unspecified; I10 Essential (primary) hypertension; E07.9 Disorder of thyroid, unspecified; Z85.3 Personal history of malignant neoplasm of breast; Z87.891 Personal history of nicotine dependence; Z79.51 Long term (current) use of inhaled steroids; Z79.899 Other long term (current) drug therapy; Z88.2 Allergy status to sulfonamides; W11.XXXA Fall on and from ladder, initial encounter; Y92.009 Unspecified place in unspecified non-institutional (private) residence as the place of occurrence of the external cause
CPT/HCPCS: 36415; 80053; 85025; 72170; 73110; 73562; 72125; 70450; 71260; 74177; 99284; 96374; 96375; 96376; J2405; J1170; Q9967

== ENCOUNTER → 2017-10-20 | Outpatient (CLI) | payer BC ==
--- NOTE | 2017-10-20 11:27 | MR ---
EXAMINATION TYPE: MR knee RT wo con DATE OF EXAM: 10/20/2017 COMPARISON: NONE HISTORY: Right knee pain-fell on knee off of a ladder on October 03 TECHNIQUE: Multiplanar, multisequence imaging of the right knee is performed without IV contrast. FINDINGS: MEDIAL MENISCUS: Anterior and posterior horns are intact without tear. There is minimal increased sig nal the posterior horn of the medial meniscus compatible with myxoid degeneration without tear. LATERAL MENISCUS: Anterior and posterior horns are intact without tear. CRUCIATE LIGAMENTS: The anterior and posterior cruciate ligaments are intact and unremarkable. COLLATERAL LIGAMENTS: The medial collateral ligament and lateral collateral ligament complex are inta ct. EXTENSOR MECHANISM: Visualized quadriceps and patellar tendons are intact. EFFUSION: Small suprapatellar joint effusion is seen without complexity to indicate synovitis. POPLITEAL CYST: Trace amount of fluid is seen between the semimembranosus and the medial head of gas trocnemius representing a tiny cyst. CARTILAGE: There is heterogeneity of the cartilaginous signal of the trochlea and patellar cartilage with focal fissure at the patellar apex. No full-thickness cartilaginous defects of the patellofemora l compartment. Although there is signal heterogeneity of the medial and lateral femorotibial cartilage no focal full -thickness or partial-thickness defects are seen. BONE MARROW SIGNAL: There is a linear transversely oriented fracture of the proximal fibular head ailin t is T1 hypointense with surrounding mild bone marrow edema. Additionally adjacent to this there is h igh signal throughout the soleus musculature is visualized with fluid throughout the fascial planes. Edema surrounds the common the biceps femoris tendon and fibular collateral ligament tendon appear in tact and of homogeneously low signal proximally with mild surrounding increased signal at their inser tional fibers. Peroneal nerve although the nerve appears intact. There is minimal increased signal of the posterior lateral femoral condyle seen on axial PD fat-sat i mage 5 and sagittal T1 nonfat sat image 21 compatible with a mild contusion. Adjacent meniscus is unr emarkable as described above. IMPRESSION: 1. Subacute appearing transversely oriented nondisplaced fibular head fracture with bone marrow edema , minimal surrounding subcutaneous soft tissue edema, and moderate grade scoliosis strain. Inflammato ry changes surround the common peroneal nerve. 2. No evidence of meniscal tear. 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 3. Small suprapatellar joint effusion. 4. Mild tricompartment chondromalacia with focal fissure at the patellar apex.
== END | disposition home or self-care (01) ==
LOC: RADMRIMAIN 08:20
PROVIDERS: ATTEND Orthopaedic Surgery
DX: S82.831A Other fracture of upper and lower end of right fibula, initial encounter for closed fracture (principal); M94.261 Chondromalacia, right knee

== ENCOUNTER → 2017-10-20 | Outpatient (CLI) | payer BC ==
--- NOTE | 2017-10-21 10:52 | MM ---
Reason for exam: screening (asymptomatic). Last mammogram was performed 2 years and 11 months ago. History: Patient is postmenopausal. Family history of breast cancer in grandmother at age 40 and breast cancer in mother at age 40. Benign ultrasound-guided cyst aspiration of the left breast, July 30, 1999. Cyst aspiration of the left breast. Took hormonal contraceptives for 21 years beginning at age 19. Took estrogen for 4 years beginning at age 40. Physical Findings: A clinical breast exam by your physician is recommended on an annual basis and results should be correlated with mammographic findings. MG Screening Mammo w CAD Bilateral CC and MLO view(s) were taken. Prior study comparison: November 15, 2014, bilateral MG screening mammo w CAD. October 19, 2013, [facility] DIGITAL RIGHT MAMMOGRAM w/CAD. There are scattered fibroglandular densities. There is chronic nodularity bilaterally. No significant changes when compared with prior studies. ASSESSMENT: Benign, BI-RAD 2 RECOMMENDATION: Routine screening mammogram of both breasts in 1 year.
== END | disposition home or self-care (01) ==
LOC: RADMAMWWP 09:16
PROVIDERS: ATTEND Family Medicine
DX: Z12.31 Encounter for screening mammogram for malignant neoplasm of breast (principal)
CPT/HCPCS: 77067